=== PATIENT | female | born 1965 | race Caucasian/White ===

== ENCOUNTER → 2024-10-15 | Outpatient (CLI) | payer SELFPAY, OTHER ==
--- NOTE | 2024-10-15 08:04 | CT_ITS ---
EXAM: CT RIGHT LOWER EXTREMITY WITHOUT INTRAVENOUS CONTRAST CLINICAL INDICATION: OSTEOARTHRITIS TECHNIQUE: Helically acquired images were obtained of the right lower extremity without intravenous contrast. 2-D reformats were performed by the technologist. CT of the right hip, knee, and ankle is performed. This CT exam was performed using one or more of the following dose reduction techniques: automated exposure control, adjustment of the mA and/or kV according to patient size, and/or use of iterative reconstruction technique. COMPARISON: No relevant prior studies available. FINDINGS: BONES/JOINTS: Bilateral SI joint arthrosis, left worse than right. No sacroiliac ankylosis. Mild acetabular hypertrophy and sclerosis. Tricompartmental marginal osteophytes at the knee and medial weightbearing compartment joint space narrowing at the knee associated with articular sclerosis. Degenerative changes at the proximal articulation of the tibia and fibula. Patellofemoral joint space narrowing and marginal osteophytes. Small knee joint effusion. Marginal osteophytes of the tibial plafond. Calcaneal spurs. No acute fracture. No subluxation. SOFT TISSUES: No significant abnormality. No soft tissue swelling or gas. No radiopaque foreign body. CT/Extremity Lower without Contra IMPRESSION: Degenerative changes of the hip, knee, and ankle. At the knee, there are tricompartmental degenerative change greatest affecting the medial weightbearing compartment. Examination is performed presumptively for operative planning. Electronically Signed: Omid Rubio DO at 11:47 EST ,
== END | disposition home or self-care (01) ==
PROVIDERS: PCP Nurse Practitioner Family; Referring Provider Student in an Organized Health Care Education/Training Program; Visit Provider Student in an Organized Health Care Education/Training Program
DX: M17.11 Unilateral primary osteoarthritis, right knee (principal)
CPT/HCPCS: 73700

== ENCOUNTER 2024-11-11 06:15 | Day surgery (SDC) | payer SELFPAY, OTHER ==
[2024-10-15 09:05] LABS: Absolute Lymphocyte Count 1.58 X10^3/uL (0.83-4.51); Absolute Neutrophil Count 1.7 X10^3/uL (2.0-7.7); Basophil# 0.06 X10^3/uL; Basophil% 1.5 % (0-1); Eosinophil# 0.23 X10^3/uL; Eosinophils% 5.8 % (0-5); Hematocrit 39.7 % (37-47); Hemoglobin 13.4 g/dL (12.0-15.0); Lymphocyte # 1.58 X10^3/ul (0.83-4.51); Lymphocyte % 39.9 % (19-41); Mean Corp Hgb Conc 33.8 g/dL (32-36); Mean Corpuscular Hgb 29.9 pg (27.0-32.0); Mean Corpuscular Volume 88.6 fL (81-99); Mean Platelet Vol. 8.9 fl (6.2-12.0); Monocyte# 0.39 X10^3/uL; Monocyte% 9.8 % (0-10); NRBC Flagged by Analyzer 0 % (0-5); Platelet Count 273 K/mm3 (150-450); RBC Distribution Width CV 12.5 % (11.6-14.6); RBC Distribution Width SD 40.7 fl (35.1-43.9); Red Blood Count 4.48 M/mm3 (4.2-5.4)
[2024-10-15 09:20] LABS: Magnesium 2.3 mg/dL (1.6-2.6)
[2024-10-15 11:33] LABS: Anion Gap 5 (5-15); BUN 13 mg/dL (7-18); Calcium,Total 9.6 mg/dL (8.5-10.1); Chloride 107 mmol/L (98-107); Creatinine, Serum 0.81 mg/dL (0.55-1.02); EST Glomerular Filtration Rate 77 mL/min (>60); Est Glom Filt Rate - Afr Amer 93 mL/min (>60); Glucose 100 mg/dL (74-106); Potassium 4.1 mmol/L (3.5-5.1); Sodium Level 138 mmol/L (136-145)
[2024-11-11] VITALS (12 sets, daily range): BP systolic 83–129; BP diastolic 59–81; PULSE 76–94; RESP 14–18; TEMP 36.1–36.8; O2SAT 97–100; BMI 26.2
[2024-11-11] MEDS: Magnesium 1 GM over 15 mins IV (06:51)
[2024-11-11] MEDS: Acetaminophen 500 MG Tablet 1000 MG PO ×2 (06:52→13:58)
[2024-11-11] MEDS: Celecoxib 200 MG Capsule 400 MG PO (06:52)
[2024-11-11] MEDS: Gabapentin 600 MG Tablet PO (06:52)
[2024-11-11] MEDS: Lactated Ringers 1,000 ML 999 ML IV ×3 (06:53→09:30)
--- NOTE | 2024-11-11 07:12 | PRE.ANES_ITS ---
ASA Classification* ASA Classification ASA Classification: 2 Assessment & Plan Anesthesia* Anesthesia Assessment Anesthesia Assessment: Discussed sedation and/or anesthesia options, risks, benefits, and alternatives with patient/parents/legal guardian/POA. Questions invited. The patient/parents/legal guardian/POA seems to understand and agrees to proceed with anesthesia plan. Reviewed the physical assessment, medical history, allergy history and patient home medications list prior to surgery/procedure/anesthetic and documented any changes. Performed airway and anesthesia risk assessments. Anesthesia Type Anesthesia Type: Spinal (MH precautions, hx in cousin) and Block Anesthesia Focused Assessment* Temperature: 98.3 F Pulse Rate: 76 Blood Pressure: 109/78 Respiratory Rate: 16 Pulse Ox: 100 Airway Assessment Mouth opens: >3 cm Mallampati Score: II Focused Labs Anesthesia Preop lab: CBC WBC 4.0 K/mm3 (4.4-11.0) L 10/15/24 08:39 RBC 4.48 M/mm3 (4.2-5.4) 10/15/24 08:39 Hgb 13.4 g/dL (12.0-15.0) 10/15/24 08:39 Hct 39.7 % (37-47) 10/15/24 08:39 Plt Count 273 K/mm3 (150-450) 10/15/24 08:39 CHEMISTRY Potassium 4.1 mmol/L (3.5-5.1) 10/15/24 08:39 Sodium 138 mmol/L (136-145) 10/15/24 08:39 Magnesium 2.3 mg/dL (1.6-2.6) 10/15/24 08:39 BUN 13 mg/dL (7-18) 10/15/24 08:39 Creatinine 0.81 mg/dL (0.55-1.02) 10/15/24 08:39 Glucose 100 mg/dL (74-106) 10/15/24 08:39 COAG Pre-Assessment Diagnosis/Proposed Procedure Planned Operative Procedure(s): (R) ERAS, Total Knee Replacement Robotic Arm Assist Right Knee / Cortisone Injection Left Knee Anesthesia History Anesthesia History - right of way clearer: Anesthesia History - right of way clearer Hx Hospitalization No 10/13/24 09:03 Any Problems With Anesthesia No 10/13/24 09:03 Cholinesterase deficiency No 10/13/24 09:03 You/Your Family Experience Yes 10/13/24 09:03 fever (hyperthermia) with Relationship PATERNAL COUSIN 10/13/24 09:03 Recent Exposure to Contagious No 11/11/24 06:42 Disease Does patient have nerve No 10/13/24 09:03 stimulator Patient instructed to have device shut off --Does patient have Pacemaker No 11/11/24 06:42 or ICD? When Was Last Pacemaker Check QUESTION #4 FULL TEXT: You/Your Family Experience fever (hyperthermia) with Anesthesia Last Oral Intake Last Oral intake: Last Oral Intake NPO since 21:00 11/11/24 06:42 Meds taken in AM with sips of No 11/11/24 06:42 water? Meds patient instructed to take am of surgery PONV PONV - right of way clearer: PONV - right of way clearer Female Yes 10/13/24 09:03 HX of Motion Sickness Yes 10/13/24 09:03 HX of N/V After Surgery No 10/13/24 09:03 Non-Smoker Yes 10/13/24 09:03 Duration of Surgery greater Yes 10/13/24 09:03 than 60 minutes Number of Risk Factors 4 10/13/24 09:03 PONV Score Severe Risk 10/13/24 09:03 Height & Weight Height & Weight: Anesthesia: Height & Weight Height 5 ft 1 in 11/11/24 06:42 Weight: 63 kg 11/11/24 06:42 Body Mass Index (BMI) 26.2 11/11/24 06:42 Respiratory Assessment Respiratory Assessment - right of way clearer: Respiratory Tract Infection Hx - right of way clearer Hx Respiratory Tract Infection No 10/13/24 09:03 STOP Sleep Apnea STOP Sleep Apnea - right of way clearer: STOP Sleep Apnea - right of way clearer Hx Hypertension No 10/13/24 09:03 Hx Sleep Apnea No 10/13/24 09:03 CPAP BIPAP Do you snore loudly (louder No 10/13/24 09:03 than talking or can be heard Do you often feel tired/ No 10/13/24 09:03 fatigued/ sleepy during daytime? Has anyone observed you stop No 10/13/24 09:03 breathing during sleep? STOP Results Negative 10/13/24 09:03 QUESTION #5 FULL TEXT : Do you snore loudly (louder than talking or can be heard through closed doors)? 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 Specify any problems Hx of Preganancy in last 3 N/A 10/13/24 09:03 Months Nurse Filling Out Transfusion NBUCHER 10/13/24 09:03 & Questions: Date: 10/13/24 10/13/24 09:03 Time: 09:04 10/13/24 09:03 Patient unable to answer at this time (ie. confused, unrespo /Reproduction History /Reproductive History - right of way clearer: /Reproductive Hx- right of way clearer Hx Now No 10/13/24 09:03 Gestational Age (in weeks): EDC: Hx Hx Para Hx Section SAB No 10/13/24 09:03 Active Medications Active Medications: Current Medications Generic Name Dose Route Start Last Admin Trade Name Freq PRN Reason Stop Dose Admin Acetaminophen 1,000 mg 11/11/24 08:50 11/11/24 06:52 Acetaminophen 500 Mg Tablet PO 11/11/24 08:51 1,000 mg X1 ONE Administration Celecoxib 400 mg 11/11/24 08:50 11/11/24 06:52 Celecoxib 200 Mg Capsule PO 11/11/24 08:51 400 mg X1 ONE Administration Sodium Chloride 77.4 ml/ 0 ml 11/11/24 08:50 Ropivacaine 200 mg/ OPERA.SITE 11/11/24 08:51 Epinephrine HCl 0.6 mg/ X1 ONE Ketorolac Tromethamine 30 mg/ Morphine Sulfate 5 mg Dexamethasone Sodium Phosphate 10 mg 11/11/24 08:50 Dexamethasone 10 Mg/Ml Vial IV 11/11/24 08:51 X1 ONE Gabapentin 600 mg 11/11/24 08:50 11/11/24 06:52 Gabapentin 600 Mg Tablet PO 11/11/24 08:51 600 mg X1 ONE Administration Lactated Ringer's 1,000 mls @ 999 mls/hr 11/11/24 08:50 11/11/24 06:53 IV 11/11/24 09:50 999 mls/hr .Q1H1M GALE Administration Cefazolin Sodium 2 gm/ N/A 20 mls @ 400 mls/hr 11/11/24 08:50 IV 11/11/24 08:52 PREOP ONE Tranexamic Acid 1,000 mg/ 110 mls @ 660 mls/hr 11/11/24 08:50 Sodium Chloride IV 11/11/24 08:59 X1 ONE Tranexamic Acid 1,000 mg/ 110 mls @ 660 mls/hr 11/11/24 09:50 Sodium Chloride IV 11/11/24 09:59 X1 ONE Lactated Ringer's 1,000 mls @ 999 mls/hr 11/11/24 09:50 IV 11/11/24 10:50 .Q1H1M GALE Lactated Ringer's 1,000 mls @ 125 mls/hr 11/11/24 10:50 IV 11/11/24 18:49 .Q8H GALE Magnesium Sulfate 1 gm/ 102 mls @ 408 mls/hr 11/11/24 08:50 11/11/24 06:51 Dextrose IV 11/11/24 09:04 408 mls/hr X1 ONE Administration Insulin Human Lispro 1 - 6 unit 11/11/24 08:50 Insulin Lispro 100 Unit/Ml Insuln.Pen SC 11/11/24 14:50 Q4H PRN PRN BG>/= 180, SEE PROTOCOL Protocol PFSH Medical History Arthritis Non-smoker Home Medications ?Medication ?Instructions ?Recorded ?Last Taken ?Type turmeric 400 mg capsule 400 mg PO DAILY 10/13/24 09/29/24 History Allergy/AdvReac Type Severity Reaction Status Date / Time succinylcholine (From Allergy Severe Other Verified 11/11/24 06:40 Anectine) Surgical History History of ovarian cystectomy (~2017) History of arthroplasty of left knee (~2008) History of tonsillectomy (~1971) History of tubal ligation (~2002) Social History Smoking Status: Never smoker Review of Systems (Anesthesia) ROS Narrative System reviewed and no additional complaints, except as documented.
[2024-11-11 07:22] LABS: Bedside Glucose 73 mg/dL (74-106)
[2024-11-11] MEDS: Cefazolin 2 GM in Syringe 10 ML IV (08:01)
--- NOTE | 2024-11-11 08:10 | KNEE_PTH ---
PATIENT: RIVAS BLANCO LOC: [facility] – [place] U#:[id number] AGE/SX: 59/F ROOM: RE11/11/[address]: Dr. Federico Jeffery DO : 1965 BED: DIS: 11/11/2024 SPEC #: [id number] RECD: 11/11/24 10:35 STATUS: JILLIAN REPayton #: [id number] BRIJESH: 11/11/24 08:[address]: Federico Jeffery DEPT: SURGICAL PATHOLOGY RECD BY: Pradeep Edwards ENTERED: 11/11/24 11:13 SP TYPE: TOTAL KNEE OTHR DR: Patric Kraft, WHITEWASHER-C Tissues: Knee, NOS Procedures: Decalcification bone/plaque Surgery Specimen Level IV HEADER OPERATION: Total knee replacement robotic arm assist right knee PRE-OP DIAGNOSIS: Grade IV osteoarthritis right knee TISSUE SUBMITTED: Right knee resections MICROSCOPIC DIAGNOSIS Right knee/resection: Severe degenerative osteoarthropathy (DJD). FA. 11/17/2024 MICROSCOPIC DESCRIPTION Slides are reviewed. GROSS DESCRIPTION Received is one container designated bone and soft tissue right knee. The specimen consists of multiple fragments of andrew-yellow bone measuring in aggregate 9.0 x 10.0 x 3.0 cm. No soft tissue is identified. A number of bony fragments contain articular surfaces consistent with tibial plateau and femoral condyle and displaying prominent osteophyte formation, eburnation and bone erosion. Instructional Media Services Technician sections are submitted in one cassette after decalcification. / [email or web address].mr 11/11/2024 TC:5 CPT: 18786, [id number]
[2024-11-11] MEDS: dexAMETHasone 10 MG/ML Vial IV (08:15)
[2024-11-11] MEDS: TXA 1000mg in NS100 100ml (IVPB at Incision) 660 MG IV (08:15)
[2024-11-11] MEDS: TXA 1000mg in NS100 100ml (IVPB at Closure) 660 MG IV (09:35)
[2024-11-11] MEDS: JPS (Morphine 10mg/ml) OPERA.SITE (09:45)
--- NOTE | 2024-11-11 10:06 | PCM.POST.ANE ---
Anesthesia: Postop Eval I Current Vital Signs Temperature: 97.5 F Pulse Rate: 89 Blood Pressure: 111/71 Respiratory Rate: 16 Pulse Ox: 98 Oxygen Delivery Method: Room Air Assessment Airway patent: Yes Spontaneous unlabored respirations: Yes Mental status: Awake and Calm nausea: No Vomiting: No Anesthesia Complication: No Fluid Hydration Crystalloid volume administer (ml): 1,500 Total IV fluid infused: 1,500 Progress Note Anesthesia document: Postop Eval 1 completed: Yes
--- NOTE | 2024-11-11 10:08 | POSTOPAN2_ITS ---
Anesthesia Postop Eval I Sum Postop Eval Completion status Anesthesia document: Postop Eval 1 completed: Yes Anesthesia Postop Eval I Summary Anesthesia Postop Eval I Summary: Anesthesia Postop Eval I: Assessment Summary Airway patent Yes 11/11/24 10:08 HAM [email or web address] Spontaneous unlabored Yes 11/11/24 10:08 HAM [email or web address].OT respirations Mental status Awake,Calm 11/11/24 10:08 HAM CURER.MDOT nausea No 11/11/24 10:08 HAM CURER.MDOT Vomiting No 11/11/24 10:08 HAM CURER.MDOT Anesthesia Postop Eval I: Fluid Summary Crystalloid volume administer 1,500 11/11/24 10:08 HAM CURER.MDOT (ml) Colloids volume administered ( ml) Blood Product volume administered (ml) Total IV fluid infused 1,500 11/11/24 10:08 HAM [email or web address].JOYCE Anesthesia Postop Eval I: Summary Notes Anesthesia Complication No 11/11/24 10:08 HAM CURER.OT Anesthesia Complication Comment: Post-operative progress note Anesthesia: Postop Eval II Evaluation Mental status: Awake and Calm Pain Level: 0 nausea: No Vomiting: No Complications Anesthesia Complication: No
--- NOTE | 2024-11-11 10:08 | PCM.POSTANE2 ---
Anesthesia Postop Eval I Sum Postop Eval Completion status Anesthesia document: Postop Eval 1 completed: Yes Anesthesia Postop Eval I Summary Anesthesia Postop Eval I Summary: Anesthesia Postop Eval I: Assessment Summary Airway patent Yes 11/11/24 10:08 NURSING PROGRAM DIRECTOR.MDOT Spontaneous unlabored Yes 11/11/24 10:08 NURSING PROGRAM DIRECTOR.OT respirations Mental status Awake,Calm 11/11/24 10:08 NURSING PROGRAM DIRECTOR.MDOT nausea No 11/11/24 10:08 NURSING PROGRAM DIRECTOR.MDOT Vomiting No 11/11/24 10:08 NURSING PROGRAM DIRECTOR.MDOT Anesthesia Postop Eval I: Fluid Summary Crystalloid volume administer 1,500 11/11/24 10:08 NURSING PROGRAM DIRECTOR.MDOT (ml) Colloids volume administered ( ml) Blood Product volume administered (ml) Total IV fluid infused 1,500 11/11/24 10:08 NURSING PROGRAM DIRECTOR.JOYCE Anesthesia Postop Eval I: Summary Notes Anesthesia Complication No 11/11/24 10:08 NURSING PROGRAM DIRECTOR.OT Anesthesia Complication Comment: Post-operative progress note Anesthesia: Postop Eval II Evaluation Mental status: Awake and Calm Pain Level: 0 nausea: No Vomiting: No Complications Anesthesia Complication: No
--- NOTE | 2024-11-11 10:35 | RAD_ITS ---
STUDY: X-RAY - RIGHT KNEE REASON FOR EXAM: Female, 59 years old. Post op -- in PACU TECHNIQUE: 2 views of the right knee. COMPARISON: None. FINDINGS: There are new postoperative changes related to right total knee arthroplasty with patellar resurfacing. There is a vertical staple line along the anterior aspect of the knee. There is gas in the patellofemoral joint recess and anterior soft tissues, compatible with recent surgery. The orthopedic hardware components are intact. There is no periprosthetic fracture. Normal proximal tibiofibular articulation. RAD/Knee 1 or 2 Views IMPRESSION: New postoperative changes related to right total knee arthroplasty. Electronically Signed: Pastor Leon MD at 9:03 EST ,
[2024-11-11] MEDS: Cefazolin 1 GM/50 ML BAG IV (13:06)
--- NOTE | 2024-11-11 13:19 | PCM.POST.ANE ---
Anesthesia: Postop Eval I Current Vital Signs Temperature: 97.2 F Pulse Rate: 90 Blood Pressure: 119/78 Respiratory Rate: 16 Pulse Ox: 97 Oxygen Delivery Method: Room Air Assessment Airway patent: Yes Spontaneous unlabored respirations: Yes Mental status: Awake and Calm nausea: No Vomiting: No Anesthesia Complication: No
--- NOTE | 2024-11-11 14:05 | RAD_ITS ---
STUDY: X-RAY - RIGHT KNEE REASON FOR EXAM: Female, 59 years old. Post op crepitus TECHNIQUE: 3 view(s) of the knee. COMPARISON: Comparison is made with prior study done earlier in the day. FINDINGS: Normal visualized distal femur. Normal visualized proximal tibia and fibula. Normal proximal tibiofibular articulation. The patient is status post total knee replacement. There is good alignment. Postoperative soft tissue changes. RAD/Knee 1 or 2 Views IMPRESSION: Status post total knee replacement. There is good alignment. Postoperative soft tissue changes. Electronically Signed: Abner Negrete MD at 14:59 EST ,
--- NOTE | 2024-11-11 14:09 | OP.PCM_ITS ---
Operative Report (Standard) Operative Information Date of Procedure: 11/11/24 Pre-Operative Diagnosis: Right knee osteoarthritis Post-Operative Diagnosis: Right knee osteoarthritis Surgery/Procedure Performed: Robotic arm assisted right total knee arthroplasty site identification specialist: Yes Fitness Leader: Jane Chew Tasks completed by first aid director: Opening & closing, Removing tissue, Implanting device, Hemostasis: Electrocautery and Retracting Additional producer assistant?: No Type of Anesthesia: Spinal/Supplemental RN Documented Start/Stop Times: Operation Date: 11/11/24 08:10 Case Time Into Pre-Op 11/11/24 06:20 Anesthesia Start 11/11/24 08:01 Into Room 11/11/24 08:01 Out of Pre-Op 11/11/24 08:01 Procedure Start 11/11/24 08:27 Procedure End 11/11/24 09:52 Anesthesia End 11/11/24 10:00 Out of Room 11/11/24 10:00 Into Recovery 11/11/24 10:01 Out of Recovery 11/11/24 10:44 Into Phase II Recovery 11/11/24 10:46 Procedure Start Time: 08:27 Procedure Stop Time: 09:52 Select all DRAINS/GRAFTS/IMPLANTS that apply: Implanted device Implanted device details: TOSA ([employer])n press-fit CR femur size #2, press-fit tibial component size #2, size number 2 x 11 mm CS polyethylene insert Estimated Blood Loss: 25 cc Specimen collected: Yes Description of specimen(s) removed: Right total knee resections Description of surgery: Patient was identified in the preoperative holding area by name, medical record number, and date of . Informed consent was confirmed with the patient. The operative knee was marked with a surgical marker. At time of her procedure, patient brought to the operative suite and positioned supine a standard operating table. Anesthesia then administered a spinal anesthetic. She was then repositioned in the supine position with all bony prominences well-padded. We then placed a well-padded pneumatic tourniquet on the right upper thigh. The right upper extremity was brought across patient's chest throughout the procedure. We then prepped and draped the right lower extremity in a normal, sterile orthopedic fashion. We performed a timeout with all parties in attendance in agreement with the side, site, operation be performed. No concerns were voiced and would like to proceed with surgery. 2 g Ancef was administered prior to the incision by anesthesia staff as well as 1 g IV TXA. First exsanguinated the right lower extremity with a Esmarch bandage. Tourniquet was inflated to 250 mmHg for 1 hour. Esmarch was removed. I planned a standard midline approach to the right knee approximately 15 cm in length. Skin was sharply incised with a 10 blade scalpel developing full-thickness layers down to the retinaculum. Layers were developed identifying the VMO. I then planned a standard medial parapatellar arthrotomy performed in flexion. The anterior horn of the medial meniscus was released. Hoffa's fat pad was then released. I then everted the patella in extension and brought the knee into 90 degrees of flexion. The anterior horn of the lateral meniscus was then released. The ACL was split in its mid substance with a 10 blade. We then brought the knee back into extension. Patella cartilage demonstrated grade I-II chondromalacia with periarticular osteophytes. Osteophytes were removed. Given the minimal central articular wear, elected to leave the patella umkumiut. I then placed pins in the metaphyseal distal femur medial to lateral for the Reyes arrays. In similar fashion, I made a 2 cm incision approximately a handsbreadth distal to the tibial tubercle along the medial aspect of the tibia, drilling 2 bicortical pins for the tibial array. The knee was brought into flexion. The patella was subluxed laterally but not everted. Medial lateral retractors were placed. We then utilized the [employer] software to confirm our planned surgical procedure and oriented with the patient's osseous anatomy. All checks with the [employer] system were confirmed. Patient had a significant fixed varus deformity after performing stress examination utilizing the [employer] software. We elected to place the tibial baseplate in approximately 3 degrees of varus to allow for appropriate balancing. Sawblade was then brought in. I first started with the tibial cut, ensuring protection of the MCL and patellar tendon. A tibial wafer was then excised. I then proceeded to make the posterior femoral, anterior, anterior chamfer cuts with the same blade. Ligaments were protected with Inter[employer]ics retractors. Sawblade was then exchanged to perform the distal femoral and posterior chamfer cuts. The robot was then removed from the surgical field. Remaining loose bone and meniscus was excised carefully. Posterior osteophytes were removed from the distal femur with a curved osteotome and rongeur. Trial components were then placed. Balance was excellent in both extension and 90 degrees flexion with an 11 mm polyethylene insert. No mid flexion instability was apparent. . Tracking was excellent. We then marked for tibial baseplate. Distal femoral pegs were drilled. Tibial keel was punched. Trials were removed. Periarticular block was administered. The wound was copiously irrigated with normal saline solution. Tibia and subsequently femoral components were then press-fit in standard fashion. I retrialed an 11 mm polyethylene insert which achieved excellent stability and balance. Final trial was removed. Tourniquet was deflated. Hemostasis was excellent. An additional 1 g TXA was administered IV. I selected a size 11 mm polyethylene which was placed and impacted per launderer hand recommendations. Final components appeared very well balanced with excellent range of motion. There is no significant remaining flexion contracture. The wound was copiously irrigated with normal saline solution. Capsule was closed watertight with #1 strata fix barbed suture. Deeper bursal layer was reapproximated with 0 Vicryl suture. Dermis was reapproximated buried interrupted 2-0 Vicryl suture. Skin was finally reapproximated peri. Patient tolerated the procedure well without apparent complication. She was safely awakened in the operative suite, transferred to his hospital bed and subsequently to PACU in stable condition. Need for skilled producer assistant: Jane Chew PA-C was critical to the outcome of the case. During the course of the procedure the physician producer assistant played a vital role. Her intimate knowledge of my steps in the procedure aided in safe and expedient completion of the procedure. The PA played a vital role in positioning particularly in obtaining the appropriate positioning. The PA was also vital in the retraction of soft tissues during the exposure and projecting vital structures. The PA was also vital and protecting soft tissues during times of bony cuts. She also played a vital role in closure with my direct supervision. The PA was also important during reduction and dislocation of the joint and trials intraoperatively. Post Operative Plan: Discharge home after meeting same-day surgery criteria Weightbearing: Range of motion and weightbearing as tolerated right lower extremity. Antibiotics: Ancef dose prior to discharge. DVT Prophylaxis: Multimodal with aspirin 81 mg twice daily, SCDs, early mobilization, KUNAL hose Rushing: None Dressing: Maintain silver dressing x 5 days X-Rays: 2-week x-rays in the office. Follow-up: 2 weeks in my office for staple removal Surgical Findings: Stable right total knee with good balance Complications Complications: No Admit VTE Documentation VTE Present on Admission: No VTE Mechan Device Prophylaxis: SCD's and Thigh High KUNAL Hose VTE Pharm Prophylaxis ordered?: Yes
== END 2024-11-11 15:23 | disposition home or self-care (01) ==
LOC: SDC 06:16 → AC 06:18
PROVIDERS: Anesthesiology; PCP Nurse Practitioner Family; Referring Provider Student in an Organized Health Care Education/Training Program; Visit Provider Student in an Organized Health Care Education/Training Program
PROC: 0SRC0JZ Replacement of Right Knee Joint with Synthetic Substitute, Open Approach (ICD-10-PCS; CPT 27447; principal; 2024-11-11 07:40)
DX: M17.11 Unilateral primary osteoarthritis, right knee (principal); Z98.51 Tubal ligation status
CPT/HCPCS: 27447; S2900; 01402; 64450; 36415; 73560; 80048; 82040; 82962; 83735; 85025; 87081; 88305; 88311; 97162; C1776; J2405; J3475

== ENCOUNTER → 2025-01-21 | Outpatient (CLI) | payer SELFPAY, OTHER ==
--- NOTE | 2025-01-21 08:41 | CT_ITS ---
PROCEDURE: EXTREMITY LOWER WITHOUT CONTRA 01/21/2025 REASON FOR EXAM: OSTEOARTHRITIS OF LEFT KNEE Reyes protocol. TECHNIQUE: Axial extremity with intravenous contrast. Coronal and Sagittal reconstruction series were provided. One or more dose reduction techniques were used (e.g., Automated exposure control, adjustment of the mA and/or kV according to patient size, use of iterative reconstruction technique). RADIATION DOSE SUMMARY: CTDlvol: 18 mGy DLP: 1322.44 mGycm COMPARISON: None. FINDINGS: Bones: No evidence of fracture. Joints: Imaging of the right hip joint was obtained. There is good alignment. Mild degree of joint space narrowing. Imaging of the knee joint was obtained. There is a marked degree of joint space narrowing involving the medial compartment of the knee joint with degenerative spur formation. Moderate degree of patellofemoral osteoarthritis and spur formation. Imaging of the ankle joint was obtained. No abnormality is seen. Soft Tissues: Small knee effusion. CT/Extremity Lower without Contra IMPRESSION: Osteoarthritis of the medial femoral compartment of the knee joint as well as t he patellofemoral joint. Small joint effusion. Reading Location: [place] [id number]
== END | disposition home or self-care (01) ==
LOC: CT 13:28
PROVIDERS: PCP Nurse Practitioner Family; Referring Provider Student in an Organized Health Care Education/Training Program; Visit Provider Student in an Organized Health Care Education/Training Program
DX: M17.12 Unilateral primary osteoarthritis, left knee (principal)
CPT/HCPCS: 73700

== ENCOUNTER 2025-02-07 05:29 | Day surgery (SDC) | payer SELFPAY, OTHER ==
[2025-01-21 09:19] LABS: Absolute Lymphocyte Count 1.43 X10^3/uL (0.83-4.51); Basophil# 0.06 X10^3/uL; Basophil% 1.5 % (0-1); Eosinophils% 4.9 % (0-5); Hematocrit 38.9 % (37-47); Hemoglobin 13.2 g/dL (12.0-15.0); Lymphocyte # 1.43 X10^3/ul (0.83-4.51); Mean Corp Hgb Conc 33.9 g/dL (32-36); Mean Corpuscular Hgb 30.2 pg (27.0-32.0); Mean Platelet Vol. 8.9 fl (6.2-12.0); Monocyte# 0.42 X10^3/uL; Monocyte% 10.3 % (0-10); NRBC Flagged by Analyzer 0 % (0-5); Neutrophil # 1.97 X10^3/uL (2.7-7.7); Neutrophil % 48.1 % (47-70); Platelet Count 258 K/mm3 (150-450); RBC Distribution Width CV 12.4 % (11.6-14.6); RBC Distribution Width SD 40.4 fl (35.1-43.9); Red Blood Count 4.37 M/mm3 (4.2-5.4); White Blood Count 4.1 K/mm3 (4.4-11.0)
[2025-01-21 09:41] LABS: Anion Gap 10 (5-15); BUN 13 mg/dL (4-19); BUN/Creat Ratio 18.5 RATIO (10-20); Calcium,Total 9.8 mg/dL (7.6-11.0); Carbon Dioxide 24.3 mmol/L (21.0-32.0); Chloride 105 mmol/L (98-108); Creatinine, Serum 0.72 mg/dL (0.70-1.20); EST Glomerular Filtration Rate 98 (>60); Glucose 95 mg/dL (70-99); Potassium 4.4 mmol/L (3.3-5.1); Sodium Level 139 mmol/L (133-145)
[2025-01-21 10:06] LABS: Magnesium 2.3 mg/dL (1.5-2.2)
[2025-02-07] VITALS (12 sets, daily range): BP systolic 110–138; BP diastolic 68–90; PULSE 81–97; RESP 12–16; TEMP 36–36.5; O2SAT 98–100; BMI 25.0
[2025-02-07] MEDS: Lactated Ringers 1,000 ML 999 ML IV ×2 (06:02→10:34)
[2025-02-07] MEDS: Magnesium 1 GM over 15 mins IV (06:02)
[2025-02-07] MEDS: Gabapentin 600 MG Tablet PO (06:03)
[2025-02-07] MEDS: Celecoxib 200 MG Capsule 400 MG PO (06:03)
[2025-02-07] MEDS: Acetaminophen 500 MG Tablet 1000 MG PO ×2 (06:03→14:33)
[2025-02-07 06:54] LABS: Bedside Glucose 80 mg/dL (74-106)
[2025-02-07] MEDS: Lactated Ringers 1,000 ML 75 ML IV (07:02)
--- NOTE | 2025-02-07 07:09 | PCM.PRE.AN2 ---
ASA Classification* ASA Classification ASA Classification: 2 Assessment & Plan Anesthesia* Anesthesia Assessment Anesthesia Assessment: Discussed sedation and/or anesthesia options, risks, benefits, and alternatives with patient/parents/legal guardian/POA. Questions invited. The patient/parents/legal guardian/POA seems to understand and agrees to proceed with anesthesia plan. Reviewed the physical assessment, medical history, allergy history and patient home medications list prior to surgery/procedure/anesthetic and documented any changes. Performed airway and anesthesia risk assessments. Anesthesia Type Anesthesia Type: Spinal (Family hx MH) and Block Anesthesia Focused Assessment* Temperature: 97.1 F Pulse Rate: 81 Blood Pressure: 138/79 Respiratory Rate: 12 Pulse Ox: 98 Airway Assessment Mouth opens: >3 cm Mallampati Score: II Focused Labs Anesthesia Preop lab: CBC WBC 4.1 K/mm3 (4.4-11.0) L 01/21/25 08:33 01/21/25 RBC 4.37 M/mm3 (4.2-5.4) 01/21/25 08:01/21/25 Hgb 13.2 g/dL (12.0-15.0) 01/21/25 08:33 01/21/25 Hct 38.9 % (37-47) 01/21/25 08:33 01/21/25 Plt Count 258 K/mm3 (150-450) 01/21/25 08:33 01/21/25 CHEMISTRY Potassium 4.4 mmol/L (3.3-5.1) 01/21/25 08:33 01/21/25 Sodium 139 mmol/L (133-145) 01/21/25 08:33 01/21/25 Magnesium 2.3 mg/dL (1.5-2.2) H 01/21/25 08:32 01/21/25 BUN 13 mg/dL (4-19) 01/21/25 08:33 01/21/25 Creatinine 0.72 mg/dL (0.70-1.20) 01/21/25 08:33 01/21/25 Glucose 95 mg/dL (70-99) 01/21/25 08:33 01/21/25 POC Glucose 80 mg/dL (74-106) 02/07/25 05:55 02/07/25 COAG Pre-Assessment Diagnosis/Proposed Procedure Planned Operative Procedure(s): LEFT TOTAL KNEE ARTHROPLASTY Anesthesia History 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 When Was Last Pacemaker Check QUESTION #4 FULL TEXT: You/Your Family Experience fever (hyperthermia) with Anesthesia Last Oral Intake Last Oral intake: Last Oral Intake NPO since 03:00 02/07/25 05:57 Meds taken in AM with sips of No 02/07/25 05:57 water? 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 supervisor Female Yes 01/10/25 09:24 HX of Motion Sickness Yes 01/10/25 09:24 HX of N/V After Surgery No 01/10/25 09:24 Non-Smoker Yes 01/10/25 09:24 Duration of Surgery greater Yes 01/10/25 09:24 than 60 minutes Number of Risk Factors 4 01/10/25 09:24 PONV Score Severe Risk 01/10/25 09:24 Height & Weight Height & Weight: Anesthesia: Height & Weight Height 5 ft 2 in 02/07/25 05:57 Weight: 62 kg 02/07/25 05:57 Body Mass Index (BMI) 25.0 02/07/25 05:57 Respiratory Assessment Respiratory Assessment - transformer assembly supervisor: Respiratory Tract Infection Hx - transformer assembly supervisor Hx Respiratory Tract Infection No 01/10/25 09:24 STOP Sleep Apnea STOP Sleep Apnea - transformer assembly supervisor: STOP Sleep Apnea - transformer assembly supervisor Hx Hypertension No 01/10/25 09:24 Hx Sleep Apnea No 01/10/25 09:24 CPAP BIPAP Do you snore loudly (louder No 01/10/25 09:24 than talking or can be heard Do you often feel tired/ No 01/10/25 09:24 fatigued/ sleepy during daytime? Has anyone observed you stop No 01/10/25 09:24 breathing during sleep? STOP Results Negative 01/10/25 09:24 QUESTION #5 FULL TEXT : Do you snore loudly (louder than talking or can be heard through closed doors)? 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 Specify any problems Hx of Preganancy in last 3 No 01/10/25 09:24 Months Nurse Filling Out Transfusion DSCHRIBER 01/10/25 09:24 & Questions: Date: 01/10/25 01/10/25 09:24 Time: :26 01/10/25 09:24 Patient unable to answer at this time (ie. confused, unrespo /Reproduction History /Reproductive History - transformer assembly supervisor: /Reproductive Hx- transformer assembly supervisor Hx Now No 01/10/25 09:24 Gestational Age (in weeks): EDC: Hx Hx Para Hx Section SAB No 01/10/25 09:24 Active Medications Active Medications: Current Medications Generic Name Dose Route Start Last Admin Trade Name Freq PRN Reason Stop Dose Admin Acetaminophen 1,000 mg 02/07/25 07:30 02/07/25 06:03 Acetaminophen 500 Mg Tablet PO 02/07/25 07:31 1,000 mg X1 ONE Administration Celecoxib 400 mg 02/07/25 07:30 02/07/25 06:03 Celecoxib 200 Mg Capsule PO 02/07/25 07:31 400 mg X1 ONE Administration Sodium Chloride 77.4 ml/ 0 ml 02/07/25 07:30 Ropivacaine 200 mg/ OPERA.SITE 02/07/25 07:31 Epinephrine HCl 0.6 mg/ X1 ONE Ketorolac Tromethamine 30 mg/ Morphine Sulfate 5 mg Dexamethasone Sodium Phosphate 10 mg 02/07/25 07:30 Dexamethasone 10 Mg/Ml Vial IV 02/07/25 07:31 X1 ONE Gabapentin 600 mg 02/07/25 07:30 02/07/25 06:03 Gabapentin 600 Mg Tablet PO 02/07/25 07:31 600 mg X1 ONE Administration Lactated Ringer's 1,000 mls @ 999 mls/hr 02/07/25 07:30 02/07/25 06:02 IV 02/07/25 08:30 999 mls/hr .Q1H1M GALE Administration Cefazolin Sodium 2 gm/ N/A 20 mls @ 400 mls/hr 02/07/25 07:30 IV 02/07/25 07:32 PREOP ONE Tranexamic Acid 1,000 mg/ 110 mls @ 660 mls/hr 02/07/25 07:30 Sodium Chloride IV 02/07/25 07:39 X1 ONE Tranexamic Acid 1,000 mg/ 110 mls @ 660 mls/hr 02/07/25 07:30 Sodium Chloride IV 02/07/25 07:39 X1 ONE Lactated Ringer's 1,000 mls @ 999 mls/hr 02/07/25 07:30 IV 02/07/25 08:30 .Q1H1M GALE Lactated Ringer's 1,000 mls @ 125 mls/hr 02/07/25 07:30 IV 02/07/25 15:29 .Q8H GALE Lactated Ringer's 1,000 mls @ 75 mls/hr 02/07/25 07:30 IV 02/07/25 20:49 .[id number] GALE Magnesium Sulfate 1 gm/ 102 mls @ 408 mls/hr 02/07/25 07:30 02/07/25 06:02 Dextrose IV 02/07/25 07:44 408 mls/hr X1 ONE Administration Insulin Human Lispro 1 - 6 unit 02/07/25 07:30 Insulin Lispro 100 Unit/Ml Insuln.Pen SC 02/07/25 18:00 Q4H PRN PRN BG>/= 180, SEE PROTOCOL Protocol Sodium Chloride 10 - 40 ml 02/07/25 07:30 0.9% Nacl Peripheral Flush Adult IV UD PRN SALINE FLUSH PFSH Medical History Post-menopausal History of edema Arthritis Non-smoker Home Medications ?Medication ?Instructions ?Recorded ?Last Taken ?Type turmeric 400 mg capsule 400 mg PO DAILY 10/13/24 01/31/25 History Allergy/AdvReac Type Severity Reaction Status Date / Time succinylcholine (From Allergy Severe Other Verified 02/07/25 05:56 Anectine) Surgical History Hx of total knee arthroplasty History of ovarian cystectomy (~2017) History of arthroplasty of left knee (~2008) History of tonsillectomy (~1971) History of tubal ligation (~2002) Social History Smoking Status: Never smoker Review of Systems (Anesthesia) ROS Narrative System reviewed and no additional complaints, except as documented.
[2025-02-07] MEDS: Cefazolin 2 GM in Syringe 10 ML IV (07:30)
--- NOTE | 2025-02-07 07:30 | KNEE_PTH ---
PATIENT: RIVAS BLANCO LOC: [facility] [place] U#:[id number] AGE/SX: 59/F ROOM: RE02/07/[address]: Dr. Federico Jeffery DO : 1965 BED: DIS: 02/07/2025 SPEC #: [id number] RECD: 02/07/25 12:36 STATUS: JILLIAN REQ #: [id number] BRIJESH: 02/07/25 07:[address]: Federico Jeffery DEPT: SURGICAL PATHOLOGY RECD BY: Willi Paulson ENTERED: 02/07/25 12:36 SP TYPE: TOTAL KNEE OTHR DR: MD Patric Hughes, DATABASES SOFTWARE CONSULTANT-C Tissues: A - Knee, NOS Procedures: Decalcification bone/plaque Surgery Specimen Level IV HEADER OPERATION: ERAS, total knee replacement robotic arm assist PRE-OP DIAGNOSIS: Grade IV osteoarthritis left knee TISSUE SUBMITTED: A- Bone and soft tissue left knee MICROSCOPIC DIAGNOSIS A. Left knee, bone and soft tissue, total arthroplasty: * Articular bone with osteoarthritic reactive and degenerative changes. * Synovium and fibrocartilage with reactive/degenerative changes. MICROSCOPIC DESCRIPTION Slides are reviewed. GROSS DESCRIPTION A. Received in formalin in a container labeled with the patient's name, date of , and bone and soft tissue left knee are multiple andrew-pink, firm, and irregular fragments of knee bone with minimal attached soft tissue measuring 10.0 x 9.0 x 3.7 cm in aggregate. The specimen consists of, but is not limited to, possible medial/lateral condyle and tibial plateau. The resection margins are smooth and firm, and the opposing cortical surfaces are pitted and granular with smooth eburnation. Sectioning reveals firm andrew-pink surfaces. Taproom Attendant sections:A1. Soft tissueA2. Bone, following decalcification [facility] 02-07-2025 CPT:52465,39982
[2025-02-07] MEDS: dexAMETHasone 10 MG/ML Vial IV (07:35)
[2025-02-07] MEDS: TXA 1000mg in NS100 100ml (IVPB at Incision) 660 MG IV (07:40)
[2025-02-07] MEDS: TXA 1000mg in NS100 100ml (IVPB at Closure) 660 MG IV (08:55)
[2025-02-07] MEDS: JPS (Morphine 10mg/ml) OPERA.SITE (08:58)
--- NOTE | 2025-02-07 09:46 | RAD_ITS ---
PROCEDURE: Left knee radiographs, two views 02/07/2025 REASON FOR EXAM: Postoperative evaluation TECHNIQUE: Two views of the left knee were obtained. COMPARISON: Left lower extremity CT 01/21/2025 FINDINGS: Two views of the left knee were obtained. Bones are mildly osteopenic. Interval placement of left total knee arthroplasty. There is a small to moderate suprapatellar effusion. Multiple anterior skin peri are present. Air densities projecting over the anterior aspect of the left knee, presumably from recent surgical procedure. No acute fracture or dislocation left knee. RAD/Knee 1 or 2 Views IMPRESSION: Osteopenia. Interval placement of left total knee arthroplasty. No acute bony abnormality of the left knee. Small to moderate suprapatellar effusion. Reading Location: [facility]
--- NOTE | 2025-02-07 09:47 | PCM.OPRPT ---
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: Yes [employer] Professor: Jane Chew Tasks completed by senior court office assistant: Opening & closing, Removing tissue, Implanting device, Hemostasis: Electrocautery and Retracting Additional assistant plant control operator?: No Type of Anesthesia: Spinal RN Documented Start/Stop Times: Operation Date: 02/07/25 07:30 Case Time Into Pre-Op 02/07/25 05:47 Out of Pre-Op 02/07/25 07:29 Anesthesia Start 02/07/25 07:30 Into Room 02/07/25 07:30 Procedure Start 02/07/25 08:00 Procedure End 02/07/25 09:24 Anesthesia End 02/07/25 09:32 Out of Room 02/07/25 09:32 Into Recovery 02/07/25 09:35 Procedure Start Time: 08:00 Procedure Stop Time: 09:24 Select all DRAINS/GRAFTS/IMPLANTS that apply: Implanted device Implanted device details: Carbon [employer]agen press-fit CR femur size #2, press-fit tibial component size #1, 9 mm CS polyethylene Estimated Blood Loss: 50 cc Specimen collected: Yes Description of specimen(s) removed: Left knee bone and tissue resections Description of surgery: Patient was identified in the preoperative holding area by name, medical record number, and date of . Informed consent was confirmed with the patient. The operative knee was marked with a surgical marker. At time of her procedure, patient brought to the operative suite and positioned supine a standard operating table. Anesthesia then administered a spinal anesthetic. She was then repositioned in the supine position with all bony prominences well-padded. We then placed a well-padded pneumatic tourniquet on the left upper thigh. The left upper extremity was brought across patient's chest throughout the procedure. We then prepped and draped the left lower extremity in a normal, sterile orthopedic fashion. We performed a timeout with all parties in attendance in agreement with the side, site, operation be performed. No concerns were voiced and would like to proceed with surgery. 2 g Ancef was administered prior to the incision by anesthesia staff as well as 1 g IV TXA. First exsanguinated the left lower extremity with a Esmarch bandage. Tourniquet was inflated to 250 mmHg for approximately 55 minutes. Esmarch was removed. I planned a standard midline approach to the left knee approximately 15 cm in length. Skin was sharply incised with a 10 blade scalpel developing full-thickness layers down to the retinaculum. Layers were developed identifying the VMO. I then planned a standard medial parapatellar arthrotomy performed in flexion. The anterior horn of the medial meniscus was released. Hoffa's fat pad was then released. I then everted the patella in extension and brought the knee into 90 degrees of flexion. The anterior horn of the lateral meniscus was then released. The ACL was split in its mid substance with a 10 blade. We then brought the knee back into extension. Patella cartilage demonstrated grade I-II chondromalacia with periarticular osteophytes. Osteophytes were removed. Given the minimal central articular wear, elected to leave the patella assiniboine and gros ventre tribes. I then placed pins in the metaphyseal distal femur medial to lateral for the Reyes arrays. In similar fashion, I made a 2 cm incision approximately a handsbreadth distal to the tibial tubercle along the medial aspect of the tibia, drilling 2 bicortical pins for the tibial array. The knee was brought into flexion. The patella was subluxed laterally but not everted. Medial lateral retractors were placed. We then utilized the [employer] software to confirm our planned surgical procedure and oriented with the patient's osseous anatomy. All checks with the [employer] system were confirmed. Patient had a significant fixed varus deformity after performing stress examination utilizing the Reyes software. We elected to place the tibial baseplate in approximately 2 degrees of varus to allow for appropriate balancing. Sawblade was then brought in. I first started with the tibial cut, ensuring protection of the MCL and patellar tendon. A tibial wafer was then excised. I then proceeded to make the posterior femoral, anterior, anterior chamfer cuts with the same blade. Ligaments were protected with [employer] retractors. Sawblade was then exchanged to perform the distal femoral and posterior chamfer cuts. The robot was then removed from the surgical field. Remaining loose bone and meniscus was excised carefully. Posterior osteophytes were removed from the distal femur with a curved osteotome and rongeur. Trial components were then placed. Balance was excellent in both extension and 90 degrees flexion with an 9 mm polyethylene insert. No mid flexion instability was apparent. . Tracking was excellent. We then marked for tibial baseplate. Distal femoral pegs were drilled. Tibial keel was punched. Trials were removed. Periarticular block was administered. The wound was copiously irrigated with normal saline solution. Tibia and subsequently femoral components were then press-fit in standard fashion. I retrialed an 9 mm polyethylene insert which achieved excellent stability and balance. Final trial was removed. Tourniquet was deflated. Hemostasis was excellent. An additional 1 g TXA was administered IV. I selected a size 9 mm polyethylene which was placed and impacted per mobile qa tester recommendations. Final components appeared very well balanced with excellent range of motion. There is no significant remaining flexion contracture. The wound was copiously irrigated with normal saline solution. Capsule was closed watertight with #1 strata fix barbed suture. Deeper bursal layer was reapproximated with 0 Vicryl suture. Dermis was reapproximated buried interrupted 2-0 Vicryl suture. Skin was finally reapproximated peri. Patient tolerated the procedure well without apparent complication. She was safely awakened in the operative suite, transferred to his hospital bed and subsequently to PACU in stable condition. Need for skilled assistant plant control operator: Jane Chew PA-C was critical to the outcome of the case. During the course of the procedure the physician assistant plant control operator played a vital role. Her intimate knowledge of my steps in the procedure aided in safe and expedient completion of the procedure. The PA played a vital role in positioning particularly in obtaining the appropriate positioning. The PA was also vital in the retraction of soft tissues during the exposure and projecting vital structures. The PA was also vital and protecting soft tissues during times of bony cuts. She also played a vital role in closure with my direct supervision. The PA was also important during reduction and dislocation of the joint and trials intraoperatively. Post Operative Plan: Discharge home after meeting same-day surgery criteria Weightbearing: Range of motion and weightbearing as tolerated left lower extremity. Antibiotics: Ancef dose prior to discharge. DVT Prophylaxis: Multimodal with aspirin 81 mg twice daily, SCDs, early mobilization, KUNAL hose Rushing: None Dressing: Maintain silver dressing x 5 days X-Rays: 2-week x-rays in the office. Follow-up: 2 weeks in my office for staple removal Surgical Findings: Stable knee with excellent patellofemoral tracking following final implant Complications Complications: No Admit VTE Documentation VTE Present on Admission: No VTE Mechan Device Prophylaxis: SCD's and Thigh High KUNAL Hose VTE Pharm Prophylaxis ordered?: Yes
--- NOTE | 2025-02-07 09:48 | PCM.POST.ANE ---
Anesthesia: Postop Eval I Current Vital Signs Temperature: 97.7 F Pulse Rate: 97 Blood Pressure: 115/69 Respiratory Rate: 16 Pulse Ox: 98 Assessment Airway patent: Yes Spontaneous unlabored respirations: Yes nausea: No Vomiting: No Anesthesia Complication: No Fluid Hydration Crystalloid volume administer (ml): 1,600 Total IV fluid infused: 1,600 Progress Note Anesthesia document: Postop Eval 1 completed: Yes
--- NOTE | 2025-02-07 10:33 | POSTOPAN2_ITS ---
Anesthesia Postop Eval I Sum Postop Eval Completion status Anesthesia document: Postop Eval 1 completed: Yes Anesthesia Postop Eval I Summary Anesthesia Postop Eval I Summary: Anesthesia Postop Eval I: Assessment Summary Airway patent Yes 02/07/25 09:48 [email or web address] [email or web address] Spontaneous unlabored Yes 02/07/25 09:48 FLEET [email or web address] respirations Mental status nausea No 02/07/25 09:48 FLEET [email or web address] Vomiting No 02/07/25 09:48 FLEET [email or web address] Anesthesia Postop Eval I: Fluid Summary Crystalloid volume administer 1,600 02/07/25 09:48 FLEET [email or web address] (ml) Colloids volume administered ( ml) Blood Product volume administered (ml) Total IV fluid infused 1,600 02/07/25 09:48 FLEET [email or web address] Anesthesia Postop Eval I: Summary Notes Anesthesia Complication No 02/07/25 09:48 [email or web address] [email or web address] Anesthesia Complication Comment: Post-operative progress note Anesthesia: Postop Eval II Evaluation Mental status: Awake Pain Level: 2 nausea: No Vomiting: No
--- NOTE | 2025-02-07 10:33 | PCM.POSTANE2 ---
Anesthesia Postop Eval I Sum Postop Eval Completion status Anesthesia document: Postop Eval 1 completed: Yes Anesthesia Postop Eval I Summary Anesthesia Postop Eval I Summary: Anesthesia Postop Eval I: Assessment Summary Airway patent Yes 02/07/25 09:48 [email or web address] Spontaneous unlabored Yes 02/07/25 09:48 [email or web address] respirations Mental status nausea No 02/07/25 09:48 [email or web address] [email or web address] Vomiting No 02/07/25 09:48 [email or web address] Anesthesia Postop Eval I: Fluid Summary Crystalloid volume administer 1,600 02/07/25 09:48 [email or web address] (ml) Colloids volume administered ( ml) Blood Product volume administered (ml) Total IV fluid infused 1,600 02/07/25 09:48 [email or web address] Anesthesia Postop Eval I: Summary Notes Anesthesia Complication No 02/07/25 09:48 [email or web address] Anesthesia Complication Comment: Post-operative progress note Anesthesia: Postop Eval II Evaluation Mental status: Awake Pain Level: 2 nausea: No Vomiting: No
[2025-02-07] MEDS: Cefazolin 1 GM/50 ML BAG IV (12:29)
== END 2025-02-07 14:50 | disposition home or self-care (01) ==
LOC: SDC 05:29 → AC 05:30
PROVIDERS: Anesthesiology; PCP Nurse Practitioner Family; Referring Provider Student in an Organized Health Care Education/Training Program; Visit Provider Student in an Organized Health Care Education/Training Program
PROC: 0SRD0JZ Replacement of Left Knee Joint with Synthetic Substitute, Open Approach (ICD-10-PCS; CPT 27447; principal; 2025-02-07 07:00)
DX: M17.12 Unilateral primary osteoarthritis, left knee (principal); Z96.651 Presence of right artificial knee joint
CPT/HCPCS: 27447; S2900; 01402; 64447; 36415; 73560; 73700; 80048; 82962; 83735; 85025; 87081; 88305; 88311; 97162; C1776; J2405; J3475